=== PATIENT | female | born 1965 | race Caucasian/White ===

== ENCOUNTER 2016-12-23 00:25 | Emergency (ER) | payer OTHER ==
[~2016-12-23] VITALS: Ht 162.6 cm; Wt 67.7 kg
[2016-12-23 01:22] LABS: ASPARTATE AMINO TRANSFERASE 49 U/L (15-37); BLOOD UREA NITROGEN 11 mg/dL (7-18)
[2016-12-23] MEDS ORDERED: CEFTRIAXONE 1,000 MG IV ONE (03:00)
[2016-12-23] MEDS ORDERED: LIDOCAINE 1%, 20ML ONE (03:15)
[2016-12-23] MEDS ORDERED: CEFTRIAXONE 1,000 MG ONE (03:15)
[2016-12-23] MEDS ORDERED: CEFTRIAXONE PMX 1GM/50ML 50 ML ONE (03:21)
[2016-12-23] MEDS ORDERED: CEFTRIAXONE PMX 1GM/50ML 50 ML IV ONE (03:30)
[2016-12-23 04:23] VITALS: BP 98/45
== END 2016-12-23 04:26 | disposition home or self-care (01) ==
LOC: ED 02:19
DX: N10 Acute pyelonephritis (principal)
CPT/HCPCS: 36415; 74177; 80053; 81001; 83690; 85025; 87077; 87086; 87186; 96365; 99285; J0696